=== PATIENT | male | born 1985 | race Caucasian/White ===

== ENCOUNTER 2016-11-08 15:25 | Emergency (ER) | payer OTHER ==
[2016-11-08 15:42] VITALS: BP 139/89; PULSE 83; RESP 20; TEMP 98.1
--- NOTE | 2016-11-08 17:21 | ED ---
General Adult HPI - General Chief complaint: Extremity Problem,Nontraumatic Stated complaint: injury-left arm pain/numbness/cramps Time Seen by Provider: 11/08/16 17:13 Source: patient, RN notes reviewed Mode of arrival: ambulatory Limitations: no limitations - History of Present Illness Initial comments: Patient 31-year-old male who presents emergency room today with chief complaint of increased left sided neck and shoulder pain. Patient denies any injury or trauma. Does admit that symptoms started a week ago. States he went to [facility] emergency room. States in x-ray done of the left shoulder. States that he noticed some numbness tingling sensation going down to his left arm. States the numbness tingling to the left hand. Patient states that he was given medications of Cataflam along with steroids and was discussed about tendinitis. Patient states that pain is reproduced with certain movements above shoulder height. States also reproduced when he rotates his head to the left. He denies any other complaints or symptoms currently. Patient denies any recent fever, chills, shortness of breath, chest pain, back pain, abdominal pain , nausea or vomiting, dysuria or hematuria, constipation or diarrhea, headaches or visual changes, or any other complaints. - Related Data Home Medications Medication Instructions Recorded Confirmed Diclofenac Sodium [Voltaren] 50 mg PO BID PRN 11/08/16 11/08/16 predniSONE See Taper PO DAILY 11/08/16 11/08/16 Previous Rx's Medication Instructions Recorded Cyclobenzaprine [Flexeril] 10 mg PO TID #20 tab 11/08/16 Allergies Allergy/AdvReac Type Severity Reaction Status Date / Time No Known Allergies Allergy Verified 11/08/16 16:33 Review of Systems ROS Statement: Those systems with pertinent positive or pertinent negative responses have been documented in the HPI. ROS Other: All systems not noted in ROS Statement are negative. Past Medical History Past Medical History: No Reported History History of Any Multi-Drug Resistant Organisms: None Reported Past Surgical History: No Surgical Hx Reported Past Psychological History: No Psychological Hx Reported Smoking Status: Current every day smoker Past Alcohol Use History: None Reported Past Drug Use History: None Reported General Exam - General Exam Comments Initial Comments: General: The patient is awake and alert, in no distress, and does not appear acutely ill. Eye: Pupils are equal, round and reactive to light, extra-ocular movements are intact. No nystagmus. There is normal conjunctiva bilaterally. No signs of icterus. Ears, nose, mouth and throat: There are moist mucous membranes and no oral lesions. Neck: The neck is supple, there is no tenderness or JVD. Cardiovascular: There is a regular rate and rhythm. No murmur, rub or gallop is appreciated. Respiratory: Lungs are clear to auscultation, respirations are non-labored, breath sounds are equal. No wheezes, stridor, rales, or rhonchi. Musculoskeletal: Full range of motion. Patient does have tenderness to the paravertebral area of the cervical spine on the left along with muscular area of the posterior left shoulder. Strength 5/5. Sensation intact. Pulses equal bilaterally 2+. Neurological: A&O x 3. CN II-XII intact, There are no obvious motor or sensory deficits. Coordination appears grossly intact. Speech is normal. Skin: Skin is warm and dry and no rashes or lesions are noted. Psychiatric: Cooperative, appropriate mood & affect, normal judgment. Limitations: no limitations Course Vital Signs 11/08/16 15:39 Temperature 98.1 F Pulse Rate 83 Respiratory 20 Rate Blood Pressure 139/89 O2 Sat by Pulse 99 Oximetry Medical Decision Making - Medical Decision Making Patient reexamined at this time shows no signs of distress. Patient's x-ray has been reviewed and shows no acute fracture dislocation. Patient is advised to follow-up family doctor. Patient pain reproduced on palpation and with certain movements. Patient's symptoms are consistent with musculoskeletal. Positive memory contrast. Advised continue prescription prescribed medications Cataflam along with prednisone. Advised return here to the emergency room if any symptoms increase or worsening of concerns. Patient states understanding and is in agreement. Disposition Clinical Impression: Muscle strain Disposition: HOME SELF-CARE Condition: Good Instructions: Muscle Strain (ED) Additional Instructions: Please use medication as discussed. Please be aware that muscle relaxant may make you drowsy. Please follow-up with family doctor in the next 2 days of symptoms have not improved. Please return to emergency room if the symptoms increase or worsen or for any other concerns. Prescriptions: Cyclobenzaprine [Flexeril] 10 mg PO TID #20 tab Referrals: None,Stated [Primary Care Provider] - 1-2 days Time of Disposition: 17:50
--- NOTE | 2016-11-08 17:32 | XR ---
EXAMINATION TYPE: XR cervical spine limited DATE OF EXAM: 11/08/2016 5:27 PM CLINICAL HISTORY: pain TECHNIQUE: 3 views of the cervical spine are submitted. COMPARISON: None. FINDINGS: There is satisfactory in alignment without evidence of acute fracture or dislocation. The pre-vertebral soft tissue appears within normal limits.Disc spaces are well preserved. The C1-C2 art iculation is unremarkable on the open mouth view. IMPRESSION: No acute fracture or dislocation is seen in the cervical spine.
== END 2016-11-08 18:08 | disposition home or self-care (01) ==
LOC: EC 15:25
DX: S16.1XXA Strain of muscle, fascia and tendon at neck level, initial encounter (principal); F17.200 Nicotine dependence, unspecified, uncomplicated; Z79.52 Long term (current) use of systemic steroids; X58.XXXA Exposure to other specified factors, initial encounter
CPT/HCPCS: 72040; 99284

== ENCOUNTER 2019-05-16 16:27 | Emergency (ER) | payer OTHER ==
[2019-05-16] MEDS ORDERED: KETOROLAC 60 MG/2 ML VIAL IM STA (17:44)
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
[2019-05-16 19:02] VITALS: BP 132/78; PULSE 78; RESP 16; TEMP 98
== END 2019-05-16 19:01 | disposition home or self-care (01) ==
LOC: EC 16:27
DX: R51 Headache (principal); Z04.1 Encounter for examination and observation following transport accident; F41.9 Anxiety disorder, unspecified; F32.9 Major depressive disorder, single episode, unspecified; F17.200 Nicotine dependence, unspecified, uncomplicated; Z79.899 Other long term (current) drug therapy
CPT/HCPCS: 99284; 96372; J1885

== ENCOUNTER → 2019-07-18 | Outpatient (CLI) | payer OTHER ==
[2019-07-18 17:05] LABS: African American GFR (CKD) 114.9 (60.0-200.0); Lithium 0.2 mmol/L (0.5-1.2); Non-African American GFR(CKD) 99.1 (60.0-200.0)
== END | disposition home or self-care (01) ==
LOC: LABWHC1 10:48
PROVIDERS: ATTEND Psychiatry & Neurology Psychiatry
DX: Z51.81 Encounter for therapeutic drug level monitoring (principal); Z79.899 Other long term (current) drug therapy
CPT/HCPCS: 36415; 80178; 82565; 84520

== ENCOUNTER → 2021-10-27 | Outpatient (CLI) | payer OTHER ==
[2021-10-27 18:03] LABS: Basophils # (A) 0.05 X 10*3/uL (0.00-0.10); Basophils % (A) 0.5 %; Eosinophils # (A) 0.22 X 10*3/uL (0.04-0.35); Eosinophils % (A) 2.3 %; HCT 43.5 % (39.6-50.0); HGB 14.9 g/dL (13.0-17.0); Immature Grans, Automated 0.4 %; Lymphocytes # (A) 2.72 X 10*3/uL (0.90-5.00); Lymphocytes % (A) 28.3 %; MCH 30.5 pg (27.0-32.0); MCHC 34.3 g/dL (32.0-37.0); Mean Platelet Volume 10.9 fL (9.5-12.2); Monocytes # (A) 0.57 X 10*3/uL (0.20-1.00); Monocytes % (A) 5.9 %; NRBC Per 100 WBC 0 /100 WBCS (0.0-0.0); Neutrophils # (A) 6.01 X 10*3/uL (1.80-7.70); Neutrophils % (A) 62.6 %; Platelet Count 264 X 10*3/uL (140-440); RBC 4.89 X 10*6/uL (4.40-5.60); RDW 12.2 % (11.5-14.5); WBC 9.61 X 10*3/uL (4.50-10.00)
[2021-10-27 18:21] LABS: ALT 35 U/L (10-49); AST 19 U/L (14-35); African American GFR (CKD) 118.4 (60.0-200.0); Albumin 4.4 g/dL (3.8-4.9); Albumin/Globulin Ratio 2.31 (1.60-3.17); Alkaline Phosphatase 127 U/L (41-126); BUN/Creat Ratio 6.45 Ratio (12.00-20.00); Bilirubin, Conjugated <0.20 mg/dL (0.20-0.40); Blood Urea Nitrogen 6.2 mg/dL (9.0-27.0); Calcium 9.6 mg/dL (8.7-10.3); Carbon Dioxide 23.3 mmol/L (20.0-27.5); Chloride 106 mmol/L (96-109); Chol/HDL Ratio 6.32 Ratio; Globulin 1.9 g/dL (1.6-3.3); Glucose 111 mg/dL (70-110); LDL Cholesterol,Calculated 102.5 mg/dL (0.0-131.0); Non-African American GFR(CKD) 102.1 (60.0-200.0); Potassium 4.1 mmol/L (3.5-5.5); Sodium 143 mmol/L (135-145); Total Protein 6.4 g/dL (6.2-8.2)
[2021-10-27 20:07] LABS: Lithium <0.05 mmol/L (0.50-1.20)
== END | disposition home or self-care (01) ==
LOC: LABWHC1 12:44
PROVIDERS: ATTEND Psychiatry & Neurology Psychiatry
DX: Z79.899 Other long term (current) drug therapy (principal)
CPT/HCPCS: 36415; 80053; 80061; 80178; 82248; 82306; 83036; 84146; 84439; 84443; 85025

== ENCOUNTER → 2024-03-25 | Outpatient (CLI) | payer OTHER ==
[2024-03-25 15:13] LABS: Basophils # (A) 0.04 X 10*3/uL (0.00-0.10); Basophils % (A) 0.3 %; Eosinophils # (A) 0.21 X 10*3/uL (0.04-0.35); Eosinophils % (A) 1.8 %; HCT 46.1 % (39.6-50.0); HGB 15.7 g/dL (13.0-17.0); Lymphocytes % (A) 21.9 %; MCH 31.5 pg (27.0-32.0); MCHC 34.1 g/dL (32.0-37.0); MCV 92.6 FL (80.0-97.0); Mean Platelet Volume 11.3 FL (9.5-12.2); Monocytes # (A) 0.59 X 10*3/uL (0.20-1.00); Monocytes % (A) 5.2 %; NRBC Per 100 WBC 0 X 10*3/uL (0.00-0.01); Neutrophils # (A) 8.05 X 10*3/uL (1.80-7.70); Neutrophils % (A) 70.5 %; Platelet Count 299 X 10*3/uL (140-440); RBC 4.98 X 10*6/uL (4.40-5.60); RDW 12.2 % (11.5-14.5); WBC 11.43 X 10*3/uL (4.50-10.00)
[2024-03-25 19:54] LABS: ALT 15 U/L (10-49); AST 14 U/L (14-35); Albumin/Globulin Ratio 2.38 Ratio (1.60-3.17); Alkaline Phosphatase 116 U/L (41-126); BUN/Creat Ratio 8.12 Ratio (12.00-20.00); Blood Urea Nitrogen 6.5 mg/dL (9.0-27.0); Calcium 10.1 mg/dL (8.7-10.3); Carbon Dioxide 26.7 mmol/L (21.6-31.8); Chloride 106 mmol/L (96-109); Chol/HDL Ratio 3.96 Ratio; Globulin 2.1 g/dL (1.6-3.3); Glucose 90 mg/dL (70-110); LDL Cholesterol,Calculated 90.4 mg/dL (0.0-131.0); Potassium 4.3 mmol/L (3.5-5.5); Sodium 144 mmol/L (135-145); T4, Free (Free Thyroxine) 1.17 ng/dL (0.80-1.80); Total Bilirubin 0.8 mg/dL (0.3-1.2); Total Protein 7.1 g/dL (6.2-8.2)
== END | disposition home or self-care (01) ==
LOC: LABWHC1 09:56
PROVIDERS: ATTEND Family Medicine
DX: E55.9 Vitamin D deficiency, unspecified (principal); Z79.899 Other long term (current) drug therapy
CPT/HCPCS: 36415; 80053; 80061; 82306; 84439; 84443; 85025

== ENCOUNTER 2024-11-17 13:15 | Inpatient (IN) | payer MEDICAID, OTHER ==
--- NOTE | 2024-11-17 13:46 | ED ---
General Adult HPI - General Chief complaint: Psychiatric Symptoms Stated complaint: Mental Health Eval. Time Seen by Provider: 11/17/24 13:20 Source: patient, RN notes reviewed, old records reviewed Mode of arrival: ambulatory Limitations: no limitations - History of Present Illness Initial comments: Patient is a 39-year-old male presents emergency department complaining of increased PTSD symptoms. States he has been feeling more anxious over the last few months that has been worse over the last few weeks. Is not sleeping. Has suicidal ideations but no specific plan. Denies any homicidal ideations. Denies any hallucinations. Currently is not taking any mental health medications. Currently has no mental follow-up. Denies any other symptoms at this time. Presents for psychiatric evaluation. He is cooperative at this time. - Related Data Home Medications Medication Instructions Recorded Confirmed Cholecalciferol (Vitamin D3) 50 mcg PO DAILY 11/17/24 11/17/24 [Vitamin D3 (50 Mcg = 2000 Iu)] Allergies Allergy/AdvReac Type Severity Reaction Status Date / Time No Known Allergies Allergy Verified 11/17/24 14:50 Review of Systems ROS Statement: Those systems with pertinent positive or pertinent negative responses have been documented in the HPI. Review of Systems: CONST: Denies fever EYES: Denies blurry vision ENT: Denies nasal congestion C/V: Denies Chest pain RESP: Denies shortness of breath GI: Denies abdominal pain : Denies dysuria SKIN: Denies rash. MSK: Denies joint pain. NEURO: Denies headache ROS Other: All systems not noted in ROS Statement are negative. Past Medical History Past Medical History: No Reported History Additional Past Medical History / Comment(s): thorasic outlet syndrome History of Any Multi-Drug Resistant Organisms: None Reported Past Surgical History: No Surgical Hx Reported Additional Past Surgical History / Comment(s): rib resection Past Psychological History: Anxiety, Depression, PTSD Smoking Status: Vaper Past Alcohol Use History: None Reported, Rare Past Drug Use History: None Reported, Marijuana General Exam - General Exam Comments Initial Comments: General: Appears anxious HEAD: Normal with no signs of head trauma. EYES: EOMI. ENT: Hearing grossly intact. RESPIRATORY: No respiratory distress. C/V: Regular rate and rhythm. ABD: Abdomen is nondistended. EXT: No obvious deformity. SKIN: No rashes or lesions observed on exposed skin. NEURO: Alert and oriented. Limitations: no limitations Course Vital Signs 11/17/24 11/17/24 11/17/24 13:17 15:21 17:49 Temperature 98.8 F Pulse Rate 97 75 75 Respiratory 17 16 20 Rate Blood Pressure 129/95 130/68 130/80 O2 Sat by Pulse 100 98 99 Oximetry 11/17/24 19:51 Temperature 97.6 F Pulse Rate 70 Respiratory 17 Rate Blood Pressure 119/86 O2 Sat by Pulse 98 Oximetry Medical Decision Making - Medical Decision Making Was pt. sent in by a medical professional or institution (, PA, ASSISTANT FEDERAL PUBLIC DEFENDER, urgent care, hospital, or halfway...) When possible be specific @ -No Did you speak to anyone other than the patient for history (EMS, parent, family, police, friend...)? What history was obtained from this source @ -No Did you review nursing and triage notes (agree or disagree)? Why? @ -I reviewed and agree with nursing and triage notes Were old charts reviewed (outside hosp., previous admission, EMS record, old EKG, old radiological studies, urgent care reports/EKG's, halfway records)? Report findings @ -No old charts were reviewed Differential Diagnosis (chest pain, altered mental status, abdominal pain women, abdominal pain men, vaginal bleeding, weakness, fever, dyspnea, syncope, headache, dizziness, GI bleed, back pain, seizure, CVA, palpatations, mental health, musculoskeletal)? @ -Differential Mental Health Depression, anxiety, bipolar, psychosis, schizophrenia, borderline personality, situational depression, adjustment disorder, behavioral disorder, brain tumor, malingering, substance abuse, encephalopathy, medication reaction, dementia, hypothyroidism, degenerative neurologic disorder, lupus.... This is not meant to be all-inclusive list EKG interpreted by me (3pts min.). @ -None done X-rays interpreted by me (1pt min.). @ -None done CT interpreted by me (1pt min.). @ -None done U/S interpreted by me (1pt. min.). @ -None done What testing was considered but not performed or refused? (CT, X-rays, U/S, labs)? Why? @ -None What meds were considered but not given or refused? Why? @ -None Did you discuss the management of the patient with other professionals (professionals i.e. , PA, ASSISTANT FEDERAL PUBLIC DEFENDER, lab, RT, psych nurse, licensed master social worker, assistant professor of history, teacher, community liaison officer, family service caseworker)? Give summary @ -EPS notified of the consult Was smoking cessation discussed for >3mins.? @ -No Was critical care preformed (if so, how long)? @ -No Were there social determinants of health that impacted care today? How? (Homelessness, low income, unemployed, alcoholism, drug addiction, transportation, low edu. Level, literacy, decrease access to med. care, mcc, rehab)? @ -No Was there de-escalation of care discussed even if they declined (Discuss DNR or withdrawal of care, Hospice)? DNR status @ -No What co-morbidities impacted this encounter? (DM, HTN, Smoking, COPD, CAD, Cancer, CVA, ARF, Chemo, Hep., AIDS, mental health diagnosis, sleep apnea, morbid obesity)? @ -None Was patient admitted / discharged? Hospital course, mention meds given and route, prescriptions, significant lab abnormalities, going to OR and other pertinent info. @ -Patient presents for mental health evaluation. Patient placed in montano scrubs. Sitter ordered. Suicide precautions ordered. BAT is 0. UDS is pending. Within acceptable limits. At this time, patient is medically cleared for evaluation by psychiatry. Disposition pending psychiatric evaluation. EPS notified of the consult. EPS evaluated patient and determined that patient does not meet inpatient criteria for psychiatric admission. Patient admitted in stable condition. Undiagnosed new problem with uncertain prognosis? @ -No Drug Therapy requiring intensive monitoring for toxicity (Heparin, Nitro, Insulin, Cardizem)? @ -No Were any procedures done? @ -No Diagnosis/symptom? @ -Suicidal ideation Acute, or Chronic, or Acute on Chronic? @ -Acute Uncomplicated (without systemic symptoms) or Complicated (systemic symptoms)? @ -Complicated Side effects of treatment? @ -None Exacerbation, Progression, or Severe Exacerbation] @ -No Poses a threat to life or bodily function? @ -Yes - Lab Data Lab Results 11/17/24 11/17/24 Range/Units 13:27 17:46 Urine Opiates Screen Not Detected (NotDetected) Ur Oxycodone Screen Not Detected (NotDetected) Urine Methadone Screen Not Detected (NotDetected) Ur Barbiturates Screen Not Detected (NotDetected) U Tricyclic Antidepress Not Detected (NotDetected) Ur Phencyclidine Scrn Not Detected (NotDetected) Ur Amphetamines Screen Not Detected (NotDetected) U Methamphetamines Scrn Not Detected (NotDetected) U Benzodiazepines Scrn Not Detected (NotDetected) Urine Cocaine Screen Not Detected (NotDetected) U Marijuana (THC) Screen Detected H (NotDetected) Influenza Type A (PCR) Not Detected (Not Detectd) Influenza Type B (PCR) Not Detected (Not Detectd) RSV (PCR) Not Detected (Not Detectd) SARS-CoV-2 (PCR) Not Detected (Not Detectd) Disposition Clinical Impression: Suicidal ideation Disposition: TRANSFER TO PSYCH HOSP/UNIT Condition: Stable
[2024-11-17] MEDS: LORazepam 1 MG TAB PO STA (13:57)
[2024-11-17 14:01] LABS: Amphetamine Screen,Urine Not Detected (NotDetected); Barbiturate Screen,Urine Not Detected (NotDetected); Benzodiazepines Screen,Urine Not Detected (NotDetected); Cocaine Screen,Urine Not Detected (NotDetected); Methadone Screen, Urine Not Detected (NotDetected); Opiate Screen,Urine Not Detected (NotDetected); Oxycodone Screen, Urine Not Detected (NotDetected); Phencyclidine Screen,Urine Not Detected (NotDetected); Tricyclic Antidepressant,Urine Not Detected (NotDetected); Urn Cannabinoid Scrn Detected (NotDetected)
[2024-11-17 18:41] LABS: Influenza A Not Detected (Not Detectd); Influenza B Not Detected (Not Detectd); RSV Not Detected (Not Detectd)
[2024-11-17] MEDS ORDERED: ACETAMINOPHEN TAB 325 MG TAB PO PRN (19:25)
[2024-11-17] MEDS ORDERED: LORazepam 1 MG TAB PO PRN (19:25)
[2024-11-17] MEDS ORDERED: haloperidoL 5 MG TAB PO PRN (19:25)
[2024-11-17] MEDS ORDERED: MAG HYDROX/AL HYDROX/SIMETH 355 ML BOTTLE PO PRN (19:25)
[2024-11-17] MEDS ORDERED: LORazepam 2 MG/ML INJ IM PRN (19:25)
[2024-11-17] MEDS ORDERED: HALOPERIDOL LACTATE 5 MG/ML 1 ML VIAL IM PRN (19:25)
[2024-11-17] MEDS ORDERED: MAGNESIUM HYDROXIDE 2,400 MG/30 ML CUP PO PRN (19:25)
[2024-11-17] MEDS: NICOTINE 7MG/24HR PATCH TRANSDERM STA (21:27)
[2024-11-18] MEDS: CHOLECALCIFEROL 25 MCG (1000 IU) TABLET PO SCH (08:41)
[2024-11-18 08:55] LABS: Basophils # (A) 0.05 10*3/uL (0.00-0.10); Basophils % (A) 0.6 %; Eosinophils # (A) 0.16 10*3/uL (0.04-0.35); Eosinophils % (A) 1.8 %; HGB 17.2 g/dL (13.0-17.0); Lymphocytes # (A) 2.51 10*3/uL (0.90-5.00); Lymphocytes % (A) 28.2 %; MCH 30.7 pg (27.0-32.0); MCHC 35.1 g/dL (32.0-37.0); MCV 87.5 fL (80.0-97.0); Mean Platelet Volume 11.5 fL (9.5-12.2); Monocytes # (A) 0.63 10*3/uL (0.20-1.00); Monocytes % (A) 7.1 %; Neutrophils # (A) 5.53 10*3/uL (1.80-7.70); Neutrophils % (A) 62.1 %; Platelet Count 280 10*3/uL (140-440); RDW 12.5 % (11.5-14.5)
[2024-11-18] MEDS ORDERED: NICOTINE 14MG/24HR PATCH TRANSDERM SCH (09:00)
[2024-11-18 09:03] LABS: ALT 19 U/L (4-49); AST 23 U/L (17-59); African American GFR (CKD) >90 (>60 ml/min/1.73 sqM); Albumin 5.2 g/dL (3.5-5.0); Alkaline Phosphatase 77 U/L (38-126); Anion Gap 15 mmol/L; Bilirubin, Delta 0.1 mg/dL (0.0-0.2); Blood Urea Nitrogen 11 mg/dL (9-20); Calcium 10.5 mg/dL (8.4-10.2); Carbon Dioxide 26 mmol/L (22-30); Chloride 102 mmol/L (98-107); Glucose 106 mg/dL (74-99); Non-African American GFR(CKD) >90 (>60 ml/min/1.73 sqM); Potassium 4.7 mmol/L (3.5-5.1); Sodium 143 mmol/L (137-145); Total Bilirubin 2.1 mg/dL (0.2-1.3); Total Protein 7.7 g/dL (6.3-8.2)
[2024-11-18] MEDS: NICOTINE 14MG/24HR PATCH TRANSDERM SCH (11:06)
[2024-11-18] MEDS: lamoTRIgine 25 MG TAB PO SCH (12:53)
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
[2024-11-18 14:55] LABS: Chol/HDL Ratio 4.23 Ratio; LDL Cholesterol,Calculated 119.8 mg/dL (0.0-131.0); VLDL Calculation 19.22 mg/dL (5.00-40.00)
--- NOTE | 2024-11-18 15:32 | P.MDCNMH ---
History of Present Illness H&P Date: 11/18/24 This is a 39-year-old male who presented to the emergency department with increased depression with suicidal thoughts looking for psychiatric evaluation. Patient follows with Dr. Longo in the outpatient setting with a past medical history of anxiety, depression, PTSD, thoracic outlet syndrome, occasional THC edibles at night for sleep. Patient reports he does follow with [facility] in the outpatient setting and was seeing Dr. Walter although requesting a new psychiatrist in the outpatient setting. Patient reports he lives with his mother and has been having increasing depression with anxiety and suicidal ideation with no plan at this time. Patient has extreme difficulty with large groups and JOSIE and is concerned he will be considered noncompliant on the psychiatric unit as he feels he is not ready for group therapy sessions. This was discussed in detail at bedside and encouraged the patient to discuss with psychiatry about these apprehensions. Patient has been instructed to follow me dication recommendations with psychiatry and increase activity as tolerated. Home medications reviewed as patient only takes vitamin D outpatient. Labs reviewed with a WBC of 8.9, hemoglobin is 17.2, platelets are stable at 280, sodium 143, potassium 4.7, BUN 11, creatinine 0.98, hemoglobin A1c is 5.1, calcium slightly high at 10.5, total bilirubin is 2.1, liver functions are within normal limits, cholesterol panel within normal limits. Drug screen was positive for marijuana of which patient reports he takes edible Gummies over the last 2 weeks and has been helping with his sleep. Influenza, RSV, COVID are all negative. Patient was voluntarily admitted to [facility] [address]. psychiatric unit for further psychiatric evaluation. REVIEW OF SYSTEMS: CONSTITUTIONAL: No fever, no malaise, no fatigue. Reports of increased anxiety HEENT: No recent visual problems or hearing problems. Denied any sore throat. CARDIOVASCULAR: No chest pain, orthopnea, PND, no palpitations, no syncope. PULMONARY: No shortness of breath, no cough, no hemoptysis. GASTROINTESTINAL: No diarrhea, no nausea, no vomiting, no abdominal pain. NEUROLOGICAL: No headaches, no weakness, no numbness. HEMATOLOGICAL: Denies any bleeding or petechiae. GENITOURINARY: Denies any burning micturition, frequency, or urgency. MUSCULOSKELETAL/RHEUMATOLOGICAL: Denies any joint pain, swelling, or any muscle pain. ENDOCRINE: Denies any polyuria or polydipsia. The rest of the 14-point review of systems is negative. PHYSICAL EXAMINATION: GENERAL: The patient is alert and oriented x3, not in any acute distress. Appears mildly anxious, well developed, well nourished. HEENT: Pupils are round and equally reacting to light. EOMI. No scleral icterus. No conjunctival pallor. Normocephalic, atraumatic. No pharyngeal erythema. No thyromegaly. CARDIOVASCULAR: S1 and S2 present. No murmurs, rubs, or gallops. PULMONARY: Chest is clear to auscultation, no wheezing or crackles. ABDOMEN: Soft, nontender, nondistended, normoactive bowel sounds. No palpable organomegaly. MUSCULOSKELETAL: No joint swelling or deformity. EXTREMITIES: No cyanosis, clubbing, or pedal edema. NEUROLOGICAL: Gross neurological examination did not reveal any focal deficits. SKIN: No rashes. Assessment: Depression with suicidal ideation History of anxiety and depression/PTSD ,follows with [facility] outpatient THC edible Gummies at night History of thoracic outlet syndrome Vaping GI prophylaxis Full code Plan: Patient was voluntarily admitted to [facility] [address]. psychiatric unit for further psychiatric evaluation for increasing depression and anxiety with suicidal thoughts Patient follows with [facility] outpatient currently requesting a new psychiatrist as he was having difference of opinions with Dr. Walter who is his psychiatrist Home medications reviewed and resumed Patient instructed and encouraged to be compliant with medications and psychiatry evaluation. Patient having apprehensions and reports does not do well in groups and concerned with group therapy sessions. Discussed with the patient about letting psychiatry know about this Encouraged increase activity as tolerated with staying up more during the day to enhance better sleep at night Thank you kindly for this consultation. Please do not hesitate to contact us with questions or concerns The impression and plan of care has been dictated by Chelsea Khalil, Nurse Practitioner as directed. Dr. Denise MD I have performed a history and examination and MDM of this patient, discussed the same with the dictator, and agree with the dictator's assessment and plan as written ,documented as a scribe. Based on total visit time, I have performed more than 50% of the visit. Past Medical History Past Medical History: No Reported History Additional Past Medical History / Comment(s): thorasic outlet syndrome History of Any Multi-Drug Resistant Organisms: None Reported Past Surgical History: No Surgical Hx Reported Additional Past Surgical History / Comment(s): rib resection Past Psychological History: Anxiety, Depression, PTSD Smoking Status: Vaper Past Alcohol Use History: None Reported, Rare Past Drug Use History: None Reported, Marijuana Medications and Allergies Home Medications Medication Instructions Recorded Confirmed Type Cholecalciferol (Vitamin D3) 50 mcg PO DAILY 11/17/24 11/17/24 History [Vitamin D3 (50 Mcg = 2000 Iu)] Allergies Allergy/AdvReac Type Severity Reaction Status Date / Time No Known Allergies Allergy Verified 11/17/24 14:50 Physical Exam Vitals: Vital Signs Temp Pulse Pulse Resp BP BP Pulse Ox 11/18/24 08:42 97.1 F L 93 16 136/94 99 11/17/24 21:00 97.9 F 75 16 130/91 100 11/17/24 19:51 97.6 F 70 17 119/86 98 11/17/24 17:49 75 20 130/80 99 11/17/24 15:21 75 16 130/68 98 11/17/24 13:17 98.8 F 97 17 129/95 100 Intake and Output 11/17/24 11/18/24 11/18/24 22:59 06:59 14:59 Other: Weight 79 kg Cranial Nerve Examination - Cranial Nerves Cranial Nerve I- Olfactory: Intact Cranial Nerve II- Optic: Intact Cranial Nerve III- Oculomotor: Intact Cranial Nerve IV- Trochlear: Intact Cranial Nerve V- Trigeminal: Intact Cranial Nerve - Abducens: Intact Cranial Nerve VII- Facial: Intact Cranial Nerve VIII- Auditory: Intact Cranial Nerve IX- Glossopharyngeal: Intact Cranial Nerve X- Vagus: Intact Cranial Nerve XI- Accessory: Intact Cranial Nerve XII- Hypoglossal: Intact Results CBC & Chem 7: 11/18/24 08:16 11/18/24 08:16 Labs: Abnormal Lab Results - Last 24 Hours (Table) 11/17/24 11/18/24 Range/Units 13:27 08:16 Hgb 17.2 H (13.0-17.0) g/dL U Marijuana (THC) Screen Detected H (NotDetected)
[2024-11-18] MEDS: IBUPROFEN 600 MG TAB PO PRN (15:40)
[2024-11-18] MEDS: DULoxetine HCL 20 MG CAPSULE.DR PO SCH (20:28)
[2024-11-19] MEDS: PANTOPRAZOLE 40 MG TABLET PO SCH (08:47)
--- NOTE | 2024-11-19 11:40 | P.PN ---
Progress Note - Text Progress Note Date: 11/19/24 Interval History: Patient was seen today for psychiatric follow-up. Patient was laying in bed, claims that he feels about the same compared to yesterday. He did appear to be a bit calmer today affect mildly improving. Denies any significant depression today however is continue to state that he feels anxious. Claims that he has been mainly avoiding others on the unit and does not going to activities group because it is "too chaotic". He is willing to continue on with the medications, claims that he is reporting mild "brain fogginess" today. He did claim that he had disrupted sleep last night, continues to endorse nightmares was agreeable to try prazosin tonight. Denies any issues with appetite. Denies any suicidal homicidal ideations intent or plan denies any auditory or visual hallucinations. MENTAL STATUS EXAM: General Appearance: Patient appears to be thin, bald, wearing glasses, stated age is alert, attempts to cooperate, appears less anxious. Patient appears to have improving hygiene and grooming. Behavior: Patient is seated without any agitated behavior. Less anxious today Speech: Patient's speech is fluent and nonpressured. Hesitant tone, improving mildly Mood/Affect: Patient reports their mood is "mainly anxious", affect is congruent and constricted. Suicidality/Homicidality: Patient denies having any homicidal ideation intent or plan. denies suicidal thoughts no specific plan or intent Perceptions: Patient denies any visual hallucinations and denies any auditory hallucinations Though content/process: There is no evidence of any delusional thought content and thought process is linear and goal-directed. Focused on his symptoms at this time. Memory and concentration: AOX3, grossly intact for the purposes of this session Judgment and insight: Poor, improving mildly IMPRESSIONS: Mood disorder unspecified, rule out bipolar disorder versus major depression PTSD Cannabis use disorder mild Nicotine dependence PLAN: -Patient is admitted under voluntary status to MHU for stabilization of psychiatric symptoms and safety. Patient has signed adult voluntary form and has signed medication consent and is placed in patient's chart. -Medications : Cymbalta 20 mg nightly for mood/anxiety, Lamictal 25 mg daily for mood stabilization/depression. he continues to not report a rash, has been monitoring skin. added prazosin 1 my qhs for nightmares/sleep -Ativan and Haldol PRN for agitation/aggression -NRT -nicotine patch -SW on board for discharge planning. Encourage patient to participate in groups to work on coping skills. hopeful for discharge early next week if patient is improving.
[2024-11-19] MEDS: PRAZOSIN 1 MG CAP PO SCH (20:19)
[2024-11-20 12:16] LABS: Appearance,Urine Clear (Clear); Bilirubin,Urine Negative (Negative); Blood,Urine Negative (Negative); Color,Urine Light Yellow; Glucose,Urine (UA) Negative (Negative); Ketones,Urine Negative (Negative); Leukocyte Esterase,Urine Negative (Negative); Mucus,Urine Rare /hpf; Nitrite,Urine Negative (Negative); PH, Urine 6.5 (5.0-8.0); Protein,Urine Negative (Negative); Specific Gravity,Urine 1.016 (1.001-1.035); Squamous Epithelial Cell,Urine <1 /hpf (0-4); Urobilinogen,Urine <2.0 mg/dL (<2.0); WBC,Urine <1 /hpf (0-5)
--- NOTE | 2024-11-20 12:17 | P.PN ---
Progress Note - Text Progress Note Date: 11/20/24 Interval History: Patient was seen today for psychiatric follow-up. Patient was seen taking part in activity group today. He claims that he is doing a bit better with regards to his mood claims that he is still feeling fairly anxious however states that it is "a bit more tolerable" today. Claims that he is having a bit of fogginess mentally however believes that it is not a issue for him. Did claim that he is monitoring his skin did show principal technical writer a mild bit of redness on his forearm, not cl early evident that this is a rash at this time we will continue to monitor. He was fairly focused on discharge today minimizing his need for being in the hospital, claims that he feels about the same compared to yesterday. He did appear to be a bit calmer today affect mildly improving. he was a bit argumentative today about his need to be in the hospital and beleives that he can be in a better envt at home. he was mainly upsety about being with his roomate and was requesting a room change. He did claim that he had disrupted sleep last night, denied any nightmares and was agreeable to try seroquel in the past. Denies any issues with appetite. Denies any suicidal homicidal ideations intent or plan denies any auditory or visual hallucinations. MENTAL STATUS EXAM: General Appearance: Patient appears to be thin, bald, wearing glasses, stated age is alert, attempts to cooperate, appears less anxious. Patient appears to have improving hygiene and grooming. Behavior: Patient is seated without any agitated behavior. Less anxious today, focused on discharge and argumentative Speech: Patient's speech is fluent and nonpressured. Hesitant tone, improving mildly Mood/Affect: Patient reports their mood is "mainly anxious but a bit better", affect is congruent and constricted. Improving mildly Suicidality/Homicidality: Patient denies having any homicidal ideation intent or plan. denies suicidal thoughts no specific plan or intent Perceptions: Patient denies any visual hallucinations and denies any auditory hallucinations Though content/process: There is no evidence of any delusional thought content and thought process is linear and goal-directed. less Focused on his symptoms at this time. More focused on discharge today minimizing. Memory and concentration: AOX3, grossly intact for the purposes of this session Judgment and insight: Poor, improving mildly IMPRESSIONS: Mood disorder unspecified, rule out bipolar disorder versus major depression PTSD Cannabis use disorder mild Nicotine dependence PLAN: -Patient is admitted under voluntary status to [facility] for stabilization of psychiatric symptoms and safety. Patient has signed adult voluntary form and has signed medication consent and is placed in patient's chart. -Medications : increase Cymbalta 30 mg nightly for mood/anxiety, Lamictal 25 mg daily for mood stabilization/depression. he has been monitoring skin, possible rash on forearm, not clearly evident yet, will keep monitoring closely. prazosin 1 my qhs for nightmares/sleep. start seroquel 25 mg qhs for insomnia/mood stabilization. -Ativan and Haldol PRN for agitation/aggression -NRT -nicotine patch -SW on board for discharge planning. Encourage patient to participate in groups to work on coping skills. hopeful for discharge sunday if patient is improving.
[2024-11-20] MEDS: DULoxetine HCL 30 MG CAPSULE.DR PO SCH (20:34)
[2024-11-20] MEDS: QUEtiapine 25 MG TAB PO SCH (20:34)
[2024-11-20] MEDS: PRAZOSIN 1 MG CAP PO SCH (20:34)
[2024-11-20] MEDS ORDERED: PRAZOSIN 1 MG CAP PO SCH (21:00)
--- NOTE | 2024-11-21 12:36 | P.PN ---
Progress Note - Text Progress Note Date: 11/21/24 Interval History: Patient was seen today for psychiatric follow-up. Patient was seen taking part in activity group today earlier. Appears to have improvement in hygiene and grooming. Improving eye contact claims that he is doing a bit better with regards to his mood. Claims that he is still having minor PTSD symptoms including the "hypervigilance" watching his back on the unit. He apologized yesterday for being upset at repairer typewriter and argumentative, understands that he needs more time when the medications and is agreeable to stay through the weekend. Claims that he was able to sleep about 5 or 6 hours last night which was well and appreciates having his own room. Denies any issues with appetite. Denies any suicidal homicidal ideations intent or plan denies any auditory or visual hallucinations. MENTAL STATUS EXAM: General Appearance: Patient appears to be thin, bald, wearing glasses, stated age is alert, attempts to cooperate, appears less anxious. Patient appears to have improving hygiene and grooming. Behavior: Patient is seated without any agitated behavior. Less anxious today Speech: Patient's speech is fluent and nonpressured, improving mildly Mood/Affect: Patient reports their mood is "better", affect is congruent and Improving mildly Suicidality/Homicidality: Patient denies having any homicidal ideation intent or plan. denies suicidal thoughts no specific plan or intent Perceptions: Patient denies any visual hallucinations and denies any auditory hallucinations Though content/process: There is no evidence of any delusional thought content and thought process is linear and goal-directed. less Focused on his symptoms at this time. Memory and concentration: AOX3, grossly intact for the purposes of this session Judgment and insight: improving mildly IMPRESSIONS: Mood disorder unspecified, rule out bipolar disorder versus major depression PTSD Cannabis use disorder mild Nicotine dependence PLAN: -Patient is admitted under voluntary status to [facility] for stabilization of psychiatric symptoms and safety. Patient has signed adult voluntary form and has signed medication consent and is placed in patient's chart. -Medications : Cymbalta 30 mg nightly for mood/anxiety, Lamictal 25 mg daily for mood stabilization/depression. he has been monitoring skin, possible rash on forearm, not clearly evident yet, will keep monitoring closely. prazosin 1 mg qhs for nightmares/sleep. seroquel 25 mg qhs for insomnia/mood stabilization. -Ativan and Haldol PRN for agitation/aggression -NRT -nicotine patch -SW on board for discharge planning. Encourage patient to participate in groups to work on coping skills. hopeful for discharge sunday if patient is improving.
[2024-11-21] MEDS: SENNOSIDES-DOCUSATE SODIUM 1 EACH TAB PO SCH (16:26)
[2024-11-21 21:13] VITALS: RESP 16
--- NOTE | 2024-11-22 14:37 | P.PN ---
Progress Note - Text Progress Note Date: 11/22/24 Dictation was produced using [employer] dictation software. Please excuse any grammatical, word or spelling errors. Interval history: Patient was seen in the group room and was directable and agreeable to speak with the senior mortgage underwriter in the office for psychiatric follow-up. The patient states that he is feeling tired, which he reported to be his usual thing. States that his mood is "stable," states that depression and anxiety are at the low-moderate side, he rated depression at 1/10, and anxiety at 3/10, he denied any current SI/HI or self harm, he denied any current AVH. He states that sleep was not that great last nigh, "they woke me up at 1:30 am to change rooms." Appetite is getting better. He states that he has been taking his medication, denied any side effects, reported that he has kind of a brain fog, he denied any muscle stiffness, rigidity, abnormal movement, or drooling. Patient reported that he had a rash a day ago, mild in the antecubital area, almost disappear, patient was educated on side effects of Lamictal, asked to report to staff immediately if he notices any new rash. He states that he is feeling safe in the unit, getting along well with everyone, patient was attending the group and playing bingo with other peers in the unit. MENTAL STATUS EXAM: General Appearance: Patient appears to be thin, bald, wearing glasses, stated age is alert, attempts to cooperate, appears less anxious. Patient appears to have improving hygiene and grooming. Behavior: Patient is seated without any agitated behavior. Speech: Patient's speech is fluent and nonpressured, improving mildly Mood/Affect: Patient reports their mood is " tired", affect is congruent and Improving mildly Suicidality/Homicidality: Patient denies having any homicidal ideation intent or plan. Denies suicidal thoughts, specific plan or intent Perceptions: Patient denies any visual hallucinations and denies any auditory hallucinations Though content/process: There is no evidence of any delusional thought content and thought process is linear and goal-directed. less Focused on his symptoms at this time. Memory and concentration: AOX3, grossly intact for the purposes of this session Judgment and insight: improving mildly IMPRESSIONS: Mood disorder unspecified, rule out bipolar disorder versus major depression PTSD Cannabis use disorder mild Nicotine dependence Assessment/Plan: Continue with current diagnosis. Patient continues to meet criteria for inpatient psychiatric admission for symptom stabilization and safety. Patient will be maintained on current psychotropic medication regimen, which includes Cymbalta 30 mg p.o. at bedtime, prazosin 1 mg p.o. at bedtime, Seroquel 25 mg at bedtime Lamictal 25 mg p.o. daily, psychoeducation was provided, risk, benefit and side effect discussed, will continue to monitor for any rash, patient reported that he does not notice any rash psychoeducation was provided into Lamictal side effects including Vera-Russel syndrome. No changes today. Monitor for medication compliance and for any psychotropic medication side effects. Will continue to monitor ongoing response to treatment. Encouraged participation in milieu.
[2024-11-23 10:53] VITALS: TEMP 97.6
--- NOTE | 2024-11-23 11:26 | P.PN ---
Progress Note - Text Progress Note Date: 11/23/24 Dictation was produced using [employer] dictation software. Please excuse any grammatical, word or spelling errors. Interval history: Patient was seen in the hallway and was directable and agreeable to speak with the securities underwriter in the office for psychiatric follow-up. The patient states that is feeling better today, he was able to get better sleep last night, he admitted to good appetite. Reported depression and anxiety to be on the mild to moderate side, he rated depression at 1-2/10, and anxiety at 3/10, states that he has been working on coping skills and being away from stressors have been helping. Denied any current SI/HI or self harm, denied any AVH, states that when he woke up this morning he was seeing some foot print which were gone fast. States that his [facility] psychiatrist was not documenting everything about him, reported that he would like to see a new psychiatrist. States that he has been compliant with his medications, denied any current side effects aside from a little fuzzy feeling. Denied any muscle stiffness, rigidity, abnormal movement, or drooling, he denied noticing any rash. Patient was reminded about the side effects of Lamictal, reported he understands. MENTAL STATUS EXAM: General Appearance: Patient appears to be thin, bald, wearing glasses, stated age is alert, attempts to cooperate, improving hygiene and grooming. Behavior: Patient is seated without any agitated behavior. Speech: Patient's speech is fluent and nonpressured, improving mildly Mood/Affect: Patient reports their mood is " good", affect is congruent and Improving mildly Suicidality/Homicidality: Patient denies having any homicidal ideation intent or plan. Denies suicidal thoughts, specific plan or intent Perceptions: Patient denies any visual hallucinations and denies any auditory hallucinations Though content/process: There is no evidence of any delusional thought content and thought process is linear and goal-directed. Memory and concentration: AOX3, grossly intact for the purposes of this session Judgment and insight: improving mildly IMPRESSIONS: Mood disorder unspecified, rule out bipolar disorder versus major depression PTSD Cannabis use disorder mild Nicotine dependence Assessment/Plan: Continue with current diagnosis. Patient continues to meet criteria for inpatient psychiatric admission for symptom stabilization and safety. Patient will be maintained on current psychotropic medication regimen, which includes Cymbalta 30 mg p.o. at bedtime, prazosin 1 mg p.o. at bedtime, Seroquel 25 mg at bedtime Lamictal 25 mg p.o. daily, psychoeducation was provided, risk, benefit and side effect discussed, will continue to monitor for any rash, patient reported that he does not notice any rash psychoeducation was provided into Lamictal side effects including Vera-Russel syndrome. No changes today. Monitor for medication compliance and for any psychotropic m edication side effects. Will continue to monitor ongoing response to treatment. Encouraged participation in milieu.
[2024-11-24 08:22] VITALS: BP 136/95; PULSE 109
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
== END 2024-11-24 10:11 | disposition home or self-care (01) | DRG 751 ==
LOC: EC 13:15 → 3MHU 19:07
PROVIDERS: ADMIT Psychiatry & Neurology Psychiatry; ATTEND Psychiatry & Neurology Psychiatry
DX: F39 Unspecified mood [affective] disorder (principal); F43.10 Post-traumatic stress disorder, unspecified; F12.10 Cannabis abuse, uncomplicated; Z71.51 Drug abuse counseling and surveillance of drug abuser; G54.0 Brachial plexus disorders; F31.9 Bipolar disorder, unspecified; F17.290 Nicotine dependence, other tobacco product, uncomplicated; F41.9 Anxiety disorder, unspecified; G47.00 Insomnia, unspecified; R45.851 Suicidal ideations; Z56.0 Unemployment, unspecified; Z79.899 Other long term (current) drug therapy; Z91.411 Personal history of adult psychological abuse; Z28.310 Unvaccinated for COVID-19; Z28.21 Immunization not carried out because of patient refusal; Z11.52 Encounter for screening for COVID-19
CPT/HCPCS: 80053; 80061; 80306; 81003; 82075; 82248; 83036; 84443; 85025; 87636; 99285

== ENCOUNTER 2024-11-28 10:30 | Emergency (ER) | payer OTHER ==
--- NOTE | 2024-11-28 11:30 | ED ---
Headache HPI - General Chief Complaint: Headache Stated Complaint: headache Time Seen by Provider: 11/28/24 11:25 Source: patient, RN notes reviewed Mode of arrival: ambulatory Limitations: no limitations - History of Present Illness Initial Comments: 39-year-old male presenting for dizziness x 9 days. Reports sensation that the room is spinning when moving his head or adjusting position. Reports he started 6 new psychiatric medications during psychiatric hospitalization 2 weeks ago. States symptoms began at the time he started his psychiatric meds. Reports he has had previous side effects similar to this with SSRIs. He saw his PCP yesterday and went to urgent care today where they sent him here for further testing. Patient was started on Cymbalta, Lamictal, prazosin, Seroquel, and BuSpar. States he was told to stop the Lamictal by the pharmacy 2 days ago. He also endorses a headache behind his eyes. Denies chest pain or shortness of breath. Denies suicidal or homicidal ideation. He has upcoming appointment with his new psychiatrist on December 05. - Related Data Home Medications Medication Instructions Recorded Confirmed Cholecalciferol (Vitamin D3) 50 mcg PO DAILY 11/17/24 11/17/24 [Vitamin D3 (50 Mcg = 2000 Iu)] Previous Rx's Medication Instructions Recorded DULoxetine HCL [Cymbalta] 30 mg PO HS 30 Days #30 cap 11/24/24 Ibuprofen [Motrin] 600 mg PO Q6HR PRN tab 11/24/24 Nicotine 14Mg/24Hr Patch [Habitrol] 1 patch TRANSDERM DAILY 14 Days 11/24/24 #14 patch Pantoprazole [Protonix] 40 mg PO AC-BRKFST 30 Days #30 tab 11/24/24 Prazosin [Minipress] 1 mg PO HS 30 Days #30 cap 11/24/24 QUEtiapine [SEROquel] 25 mg PO HS 30 Days #30 tab 11/24/24 Sennosides-Docusate Sodium 1 each PO DAILY PRN 30 Days #30 tab 11/24/24 [Senokot-S] busPIRone HCl [Buspar] 10 mg PO DAILY PRN 30 Days #30 tab 11/24/24 lamoTRIgine [LaMICtal] 25 mg PO DAILY 30 Days #30 tab 11/24/24 Meclizine [Antivert] 25 mg PO BID PRN #15 tab 11/28/24 Allergies Allergy/AdvReac Type Severity Reaction Status Date / Time No Known Allergies Allergy Verified 11/17/24 14:50 Review of Systems ROS Statement: Those systems with pertinent positive or pertinent negative responses have been documented in the HPI. ROS Other: All systems not noted in ROS Statement are negative. Past Medical History Past Medical History: No Reported History Additional Past Medical History / Comment(s): thorasic outlet syndrome History of Any Multi-Drug Resistant Organisms: None Reported Past Surgical History: No Surgical Hx Reported Additional Past Surgical History / Comment(s): rib resection Past Psychological History: Anxiety, Depression, PTSD Smoking Status: Vaper Past Alcohol Use History: None Reported, Rare Past Drug Use History: None Reported, Marijuana General Exam Limitations: no limitations General appearance: alert, in no apparent distress Head exam: Present: atraumatic, normocephalic, normal inspection Eye exam: Present: normal appearance, PERRL, EOMI. Absent: scleral icterus, conjunctival injection, periorbital swelling ENT exam: Present: normal exam, normal oropharynx, mucous membranes moist Neck exam: Present: normal inspection. Absent: tenderness, meningismus, lymphadenopathy Respiratory exam: Present: normal lung sounds bilaterally. Absent: respiratory distress, wheezes, rales, rhonchi, stridor Cardiovascular Exam: Present: regular rate, normal rhythm, normal heart sounds. Absent: systolic murmur, diastolic murmur, rubs, gallop, clicks Neurological exam: Present: alert, oriented X3 Psychiatric exam: Present: normal affect, normal mood. Absent: homicidal ideation, suicidal ideation Skin exam: Present: warm, dry, intact, normal color. Absent: rash Course Vital Signs 11/28/24 11/28/24 10:33 12:34 Temperature 97.8 F 98 F Pulse Rate 83 80 Respiratory 18 16 Rate Blood Pressure 151/115 154/90 O2 Sat by Pulse 99 100 Oximetry Medical Decision Making - Medical Decision Making Was pt. sent in by a medical professional or institution (, [facility], E LEARNING COORDINATOR, urgent care, hospital, or snf...) When possible be specific @ -Sent from urgent care for dizziness Did you speak to anyone other than the patient for history (EMS, parent, family, police, friend...)? What history was obtained from this source @ -No Did you review nursing and triage notes (agree or disagree)? Why? @ -I reviewed and agree with nursing and triage notes Were old charts reviewed (outside hosp., previous admission, EMS record, old EKG, old radiological studies, urgent care reports/EKG's, snf records)? Report findings @ -No old charts were reviewed Differential Diagnosis (chest pain, altered mental status, abdominal pain women, abdominal pain men, vaginal bleeding, weakness, fever, dyspnea, syncope, h eadache, dizziness, GI bleed, back pain, seizure, CVA, palpatations, mental health, musculoskeletal)? @ -Differential Dizziness: Benign paroxysmal positional Vertigo, Meniere's disease, otitis media, acoustic neuroma, vertebrobasilar insufficiency, cerebellar stroke, encephalitis, hypovolemic, arrhythmia, coronary artery syndrome, anemia, this is not meant to be an all-inclusive list EKG interpreted by me (3pts min.). @ -As above X-rays interpreted by me (1pt min.). @ -None done CT interpreted by me (1pt min.). @ -None done U/S interpreted by me (1pt. min.). @ -None done What testing was considered but not performed or refused? (CT, X-rays, U/S, labs)? Why? @ -None What meds were considered but not given or refused? Why? @ -None Did you discuss the management of the patient with other professionals (professionals i.e. , PA, E LEARNING COORDINATOR, lab, RT, psych nurse, social worker delinquency prevention, sports doctor, teacher, weapons officer naval activity, supportive employment case manager)? Give summary @ -No Was smoking cessation discussed for >3mins.? @ -No Was critical care preformed (if so, how long)? @ -No Were there social determinants of health that impacted care today? How? (Homelessness, low income, unemployed, alcoholism, drug addiction, transpor tation, low edu. Level, literacy, decrease access to med. care, nursing home, rehab)? @ -No Was there de-escalation of care discussed even if they declined (Discuss DNR or withdrawal of care, Hospice)? DNR status @ -No What co-morbidities impacted this encounter? (DM, HTN, Smoking, COPD, CAD, Cancer, CVA, ARF, Chemo, Hep., AIDS, mental health diagnosis, sleep apnea, morbid obesity)? @ -None Was patient admitted / discharged? Hospital course, mention meds given and route, prescriptions, significant lab abnormalities, going to OR and other pertinent info. @ -Discharge. 39-year-old male presenting for dizziness x 9 days after starting 6 new psychiatric medications. Neurological examination is unremarkable. Patient is provided with IV fluids, Tylenol, and meclizine. EKG reveals normal sinus rhythm with no ST changes. Lab work largely unremarkable. Upon reevaluation, patient reports significant improvement of symptoms. Patient updated on results. I highly suspect symptoms are a side effect of the psychiatric medications, encouraged to follow-up with psychiatrist for appointment on the . Patient will also be provided with meclizine to use as needed for dizziness. Patient is agreeable to this plan. Appropriate return precautions discussed. Case was discussed with my ED attending Dr. Cadena. Undiagnosed new problem with uncertain prognosis? @ -No Drug Therapy requiring intensive monitoring for toxicity (Heparin, Nitro, Insulin, Cardizem)? @ -No Were any procedures done? @ -No Diagnosis/symptom? @ -Dizziness Acute, or Chronic, or Acute on Chronic? @ -Acute Uncomplicated (without systemic symptoms) or Complicated (systemic symptoms)? @ -Uncomplicated Side effects of treatment? @ -No Exacerbation, Progression, or Severe Exacerbation? @ -No Poses a threat to life or bodily function? How? (Chest pain, [place], [place], pneumonia, PE, COPD, DKA, ARF, appy, cholecystitis, CVA, Diverticulitis, Homicidal, Suicidal, threat to staff... and all critical care pts) @ -Not at this time - Lab Data Result diagrams: 11/28/24 11:37 11/28/24 11:37 Lab Results 11/28/24 11/28/24 11/28/24 Range/Units 11:37 11:37 11:37 WBC 9.31 (4.50-10.00) 10*3/uL RBC 5.34 (4.40-5.60) 10*6/uL Hgb 16.5 (13.0-17.0) g/dL Hct 46.3 (39.6-50.0) % MCV 86.7 (80.0-97.0) fL MCH 30.9 (27.0-32.0) pg MCHC 35.6 (32.0-37.0) g/dL Plt Count 334 (140-440) 10*3/uL MPV 10.6 (9.5-12.2) fL Immature Gran % (Auto) 0.3 % Neutrophils % 68.7 % Lymphocytes % 24.0 % Monocytes % 5.4 % Eosinophils % 1.0 % Basophils % 0.6 % Immature Gran # 0.03 (0.00-0.04) 10*3/uL Neutrophils # 6.40 (1.80-7.70) 10*3/uL Lymphocytes # 2.23 (0.90-5.00) 10*3/uL Monocytes # 0.50 (0.20-1.00) 10*3/uL Eosinophils # 0.09 (0.04-0.35) 10*3/uL Basophils # 0.06 (0.00-0.10) 10*3/uL Sodium 143 (137-145) mmol/L Potassium 4.1 (3.5-5.1) mmol/L Chloride 103 (98-107) mmol/L Carbon Dioxide 27 (22-30) mmol/L Anion Gap 13 mmol/L BUN 5 L (9-20) mg/dL Creatinine 0.86 (0.66-1.25) mg/dL Est GFR (CKD-EPI)AfAm >90 (>60 ml/min/1.73 sqM) Est GFR (CKD-EPI)NonAf >90 (>60 ml/min/1.73 sqM) Glucose 88 (74-99) mg/dL Calcium 10.2 (8.4-10.2) mg/dL Total Bilirubin 1.0 (0.2-1.3) mg/dL AST 23 (17-59) U/L ALT 18 (4-49) U/L Alkaline Phosphatase 82 (38-126) U/L Total Protein 7.5 (6.3-8.2) g/dL Albumin 5.0 (3.5-5.0) g/dL Urine Color Colorless Urine Appearance Clear (Clear) Urine pH 7.0 (5.0-8.0) Ur Specific [place] 1.005 (1.001-1.035) Urine Protein Negative (Negative) Urine Glucose (UA) Negative (Negative) Urine Ketones Negative (Negative) Urine Blood Negative (Negative) Urine Nitrite Negative (Negative) Urine Bilirubin Negative (Negative) Urine Urobilinogen <2.0 (<2.0) mg/dL Ur Leukocyte Esterase Negative (Negative) - EKG Data -: EKG Interpreted by Me EKG Comments: EKG reveals normal sinus rhythm with no ST changes. Ventricular rate 73 bpm, UT interval 170, QRS duration 103, QT/QTc 370/396 Disposition Clinical Impression: Dizziness Disposition: HOME SELF-CARE Condition: Stable Additional Instructions: Take meclizine as needed for dizziness. Follow-up for [facility] appointment on the . Please return to the Emergency Department if symptoms worsen or any other concerns. Prescriptions: Meclizine [Antivert] 25 mg PO BID PRN #15 tab PRN Reason: dizziness Is patient prescribed a controlled substance at d/c from ED?: No Referrals: Freddy Longo DO [Primary Care Provider] - 1-2 days [facility] [NON-STAFF] - 12/05/24 10:00 am Time of Disposition: 12:53
[2024-11-28] MEDS: MECLIZINE 12.5 MG TAB PO STA (11:33)
[2024-11-28] MEDS: SODIUM CHLORIDE 0.9% 1,000 ML IV STA (11:37)
[2024-11-28] MEDS: ACETAMINOPHEN TAB 500 MG TAB PO STA (11:43)
[2024-11-28 11:44] LABS: Basophils # (A) 0.06 10*3/uL (0.00-0.10); Basophils % (A) 0.6 %; Eosinophils # (A) 0.09 10*3/uL (0.04-0.35); HCT 46.3 % (39.6-50.0); HGB 16.5 g/dL (13.0-17.0); Lymphocytes # (A) 2.23 10*3/uL (0.90-5.00); MCH 30.9 pg (27.0-32.0); MCHC 35.6 g/dL (32.0-37.0); MCV 86.7 fL (80.0-97.0); Mean Platelet Volume 10.6 fL (9.5-12.2); Monocytes % (A) 5.4 %; Neutrophils % (A) 68.7 %; Platelet Count 334 10*3/uL (140-440); RBC 5.34 10*6/uL (4.40-5.60); RDW 12.7 % (11.5-14.5); WBC 9.31 10*3/uL (4.50-10.00)
[2024-11-28 11:54] LABS: ALT 18 U/L (4-49); AST 23 U/L (17-59); African American GFR (CKD) >90 (>60 ml/min/1.73 sqM); Alkaline Phosphatase 82 U/L (38-126); Anion Gap 13 mmol/L; Blood Urea Nitrogen 5 mg/dL (9-20); Calcium 10.2 mg/dL (8.4-10.2); Carbon Dioxide 27 mmol/L (22-30); Chloride 103 mmol/L (98-107); Glucose 88 mg/dL (74-99); Non-African American GFR(CKD) >90 (>60 ml/min/1.73 sqM); Potassium 4.1 mmol/L (3.5-5.1); Sodium 143 mmol/L (137-145); Total Protein 7.5 g/dL (6.3-8.2)
[2024-11-28 12:03] LABS: Appearance,Urine Clear (Clear); Bilirubin,Urine Negative (Negative); Blood,Urine Negative (Negative); Color,Urine Colorless; Glucose,Urine (UA) Negative (Negative); Ketones,Urine Negative (Negative); Leukocyte Esterase,Urine Negative (Negative); Nitrite,Urine Negative (Negative); Protein,Urine Negative (Negative); Specific Gravity,Urine 1.005 (1.001-1.035); Urobilinogen,Urine <2.0 mg/dL (<2.0)
[2024-11-28 12:43] VITALS: BP 154/90; PULSE 80; RESP 16; TEMP 98
== END 2024-11-28 13:01 | disposition home or self-care (01) ==
LOC: EC 10:30
DX: R42 Dizziness and giddiness (principal); F17.290 Nicotine dependence, other tobacco product, uncomplicated
CPT/HCPCS: 36415; 80053; 81003; 85025; 93005; 96360; 99284

== ENCOUNTER → 2025-01-29 | Outpatient (CLI) | payer OTHER ==
[2025-01-29 12:57] LABS: Basophils # (A) 0.05 10*3/uL (0.00-0.10); Basophils % (A) 0.5 %; Eosinophils # (A) 0.03 10*3/uL (0.04-0.35); Eosinophils % (A) 0.3 %; HCT 42.7 % (39.6-50.0); HGB 15.6 g/dL (13.0-17.0); Lymphocytes # (A) 2.02 10*3/uL (0.90-5.00); Lymphocytes % (A) 21.4 %; MCH 31.2 pg (27.0-32.0); MCHC 36.5 g/dL (32.0-37.0); MCV 85.4 fL (80.0-97.0); Monocytes # (A) 0.53 10*3/uL (0.20-1.00); Monocytes % (A) 5.6 %; Neutrophils # (A) 6.79 10*3/uL (1.80-7.70); Neutrophils % (A) 71.9 %; Platelet Count 321 10*3/uL (140-440); RBC 5.00 10*6/uL (4.40-5.60); RDW 11.9 % (11.5-14.5); WBC 9.45 10*3/uL (4.50-10.00)
[2025-01-29 19:47] LABS: ALT 24 U/L (10-49); AST 24 U/L (14-35); Albumin 5.2 g/dL (3.8-4.9); Albumin/Globulin Ratio 2.48 Ratio (1.60-3.17); Alkaline Phosphatase 81 U/L (41-126); Anion Gap 14.30 mmol/L (4.00-12.00); BUN/Creat Ratio 7.67 Ratio (12.00-20.00); Blood Urea Nitrogen 6.9 mg/dL (9.0-27.0); Calcium 9.8 mg/dL (8.7-10.3); Carbon Dioxide 21.7 mmol/L (21.6-31.8); Chloride 106 mmol/L (96-109); Globulin 2.1 g/dL (1.6-3.3); Glucose 87 mg/dL (70-110); LDH 181 U/L (120-246); Potassium 4.0 mmol/L (3.5-5.5); Sodium 142 mmol/L (135-145); Total Protein 7.3 g/dL (6.2-8.2)
[2025-01-29 20:04] LABS: Immunoglobulin G 831.0 mg/dL (700.0-1600.0); Immunoglobulin M 75.0 mg/dL (40.0-280.0)
== END | disposition home or self-care (01) ==
LOC: LABWHC1 12:18
PROVIDERS: ATTEND Family Medicine
DX: G54.0 Brachial plexus disorders (principal); F51.5 Nightmare disorder; R13.12 Dysphagia, oropharyngeal phase
CPT/HCPCS: 36415; 80053; 82533; 82784; 82785; 83615; 83835; 84480; 84484; 85025; 85379

== ENCOUNTER 2025-02-12 07:39 | Day surgery (SDC) | payer OTHER ==
[2025-02-10 11:48] VITALS: BMI 25.1
[2025-02-12 08:28] VITALS: BP 138/94; PULSE 78; RESP 16; TEMP 97.8
[2025-02-12] MEDS: SODIUM CHLORIDE 0.9% 1,000 ML IV SCH (09:05)
--- NOTE | 2025-02-12 18:50 | P.EPPROC ---
- EP Procedure Note Electrophysiology Procedure Note: Diagnosis: Recurrent presyncope Baseline 12 EKG shows sinus rhythm normal [place] narrow QRS normal ST segments Tilt table test per protocol Baseline blood pressure 129/99 mmHg, baseline heart rate 68 beats minute Patient was tilted upright on annulus 30 degrees per protocol Mild increase in heart rate dropped to 30 beats a minute in the first 10 minutes Heart rates remained elevated between 100 215 beats a minute No change in blood pressure When the patient was laid supine his heart rate came down to 87 beats a minute Impression Normal 2-lead EKG Orthostatic intolerance The patient complained of being dizzy chest pressure lightheadedness fogginess in the head feeling shaky through the test
== END 2025-02-12 10:47 | disposition home or self-care (01) ==
LOC: CATHEP 07:39
PROVIDERS: ATTEND Internal Medicine Clinical Cardiac Electrophysiology
DX: R42 Dizziness and giddiness (principal); F43.12 Post-traumatic stress disorder, chronic; G44.211 Episodic tension-type headache, intractable; F51.5 Nightmare disorder; G54.0 Brachial plexus disorders; I10 Essential (primary) hypertension; Z86.16 Personal history of COVID-19; Z79.899 Other long term (current) drug therapy
CPT/HCPCS: 93660